=== PATIENT | female | born 2000 | race Caucasian/White ===

== ENCOUNTER → 2022-06-26 | Outpatient (CLI) | payer BC ==
--- NOTE | 2022-06-26 11:30 | Diagnostic Imaging Report ---
EXAMINATION: Right knee radiographs, 3 views. COMPARISON: None. HISTORY: 22-year-old female, right knee pain. FINDINGS: There is no acute fracture. There is no knee joint effusion. The joint spaces are well preserved. IMPRESSION: 1. Unremarkable radiographs of the right knee. Dictated by: Dictated on workstation # [id number]
== END ==
LOC: RAD 10:04
PROVIDERS: ATTEND Nurse Practitioner Family
DX: M25.561 Pain in right knee (principal)
CPT/HCPCS: 73562